=== PATIENT | female | born 2000 | race Caucasian/White ===

== ENCOUNTER 2020-11-16 01:47 | Emergency (ER) | payer OTHER ==
[~2020-11-16] VITALS: Ht 167.6 cm; Wt 68.2 kg
[2020-11-16 01:47] VITALS: TEMP 97.4
[2020-11-16 08:37] VITALS: BP 122/86; PULSE 114
== END 2020-11-16 09:10 | disposition home or self-care (01) ==
LOC: COL.ER 01:47
DX: S09.90XA Unspecified injury of head, initial encounter (principal); F10.129 Alcohol abuse with intoxication, unspecified; S00.83XA Contusion of other part of head, initial encounter; S40.012A Contusion of left shoulder, initial encounter; S80.02XA Contusion of left knee, initial encounter; S80.01XA Contusion of right knee, initial encounter; X58.XXXA Exposure to other specified factors, initial encounter